=== PATIENT | female | born 1965 | race Caucasian/White ===

== ENCOUNTER 2017-12-08 16:44 | Emergency (ER) | payer OTHER ==
[~2017-12-08] VITALS: Ht 172.7 cm; Wt 81.7 kg
[2017-12-08] MEDS ORDERED: TRAMADOL 50 MG50 MG PO (16:55)
[2017-12-08] MEDS ORDERED: BENICAR20 MG PO (16:55)
[2017-12-08] MEDS ORDERED: FLEXERIL PO (16:56)
[2017-12-08 17:05] LABS: ABSOLUTE LYMPHOCYTES 1.4 thou/uL (0.8-5.3); ABSOLUTE MONOCYTES 0.4 thou/uL (0.0-1.2); ABSOLUTE NEUTROPHILS 5.4 thou/uL (1.6-8.1); BASOPHILS 0.6 %; EOSINOPHILS 0.4 %; HEMATOCRIT 41.8 % (37.0-47.0); HEMOGLOBIN 14.4 gm/dL (12.0-15.0); LYMPHOCYTES 18.7 %; MCH 30.2 pg (26.0-34.0); MCHC 34.5 g/dL (28.0-37.0); MCV 87.5 fL (80.0-100.0); MONOCYTES 5.5 %; NUCLEATED RBCS 0 /100WBC; PLATELET COUNT* 277 thou/uL (150-400); POLYS 74.8 %; RBC 4.78 mil/uL (4.20-5.00); RDW-CV 12.8 % (10.5-14.5); WBC 7.2 thou/uL (4.0-11.0)
[2017-12-08 17:20] LABS: ANION GAP 8 mmol/L (7-16); BUN 15 mg/dL (7-18); CALCIUM 9.3 mg/dL (8.5-10.1); CHLORIDE 97 mmol/L (98-107); CO2 28 mmol/L (21-32); CREATININE 0.9 mg/dL (0.6-1.3); GLUCOSE 99 mg/dL (70-99); SODIUM 133 mmol/L (136-145)
[2017-12-08 17:39] LABS: ALBUMIN 4.3 g/dL (3.4-5.0); ALKALINE PHOSPHATASE 73 U/L (46-116); CK-MB MASS 0.5 ng/mL (<0.5-3.6); LIPASE 112 U/L (73-393); MAGNESIUM 2.1 mg/dL (1.8-2.4); NT-PRO BRAIN NAT PEPTIDE 13 pg/mL (<300); SGOT 22 U/L (15-37); SGPT 35 U/L (30-65); TOTAL BILIRUBIN 0.6 mg/dL (<0.1-1.0); TROPONIN-I LEVEL <0.06 ng/mL (<0.06)
[2017-12-08 17:58] LABS: APTT 27.5 Seconds (25.0-31.3); PROTIME 10.2 Seconds (9.20-11.50)
[2017-12-08] MEDS ORDERED: ZOFRAN ODT4 MG SUBLING (18:02)
[2017-12-08 18:09] VITALS: BP 154/88
--- NOTE | 2017-12-09 13:53 | EKG ---
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
== END 2017-12-08 18:10 | disposition home or self-care (01) ==
LOC: M.ERS 16:44
PROVIDERS: Family Medicine
DX: R07.9 Chest pain, unspecified (principal); I10 Essential (primary) hypertension; E78.00 Pure hypercholesterolemia, unspecified; Z88.5 Allergy status to narcotic agent